=== PATIENT | male | born 1985 | race Caucasian/White ===

== ENCOUNTER → 2021-09-12 12:52 | Outpatient (BNVA) | payer OTHER, MEDICARE, SELFPAY | PROVIDERS: PCP Nurse Practitioner Family; Visit Provider Psychiatry & Neurology Neurology | DX: F95.2 Tourette's disorder (principal); G95.9 Disease of spinal cord, unspecified | CPT/HCPCS: 99212 ==

== ENCOUNTER → 2021-11-02 14:19 | Outpatient (BNVA) | payer OTHER, SELFPAY | PROVIDERS: PCP Nurse Practitioner Family; Visit Provider Psychiatry & Neurology Neurology | DX: F95.2 Tourette's disorder (principal); M50.00 Cervical disc disorder with myelopathy, unspecified cervical region; R26.2 Difficulty in walking, not elsewhere classified; F17.210 Nicotine dependence, cigarettes, uncomplicated | CPT/HCPCS: 99212 ==

== ENCOUNTER → 2022-01-30 13:53 | Outpatient (BNVA) | payer OTHER, SELFPAY | PROVIDERS: PCP Nurse Practitioner Family; Visit Provider Psychiatry & Neurology Neurology | DX: F95.2 Tourette's disorder (principal); G95.9 Disease of spinal cord, unspecified; F32.A Depression, unspecified; F41.9 Anxiety disorder, unspecified | CPT/HCPCS: 99212 ==

== ENCOUNTER → 2022-05-04 14:22 | Outpatient (BNVA) | payer OTHER, SELFPAY | PROVIDERS: PCP Nurse Practitioner Family; Visit Provider Psychiatry & Neurology Neurology | DX: F95.2 Tourette's disorder (principal); G95.9 Disease of spinal cord, unspecified; F41.9 Anxiety disorder, unspecified; F32.A Depression, unspecified; Z79.899 Other long term (current) drug therapy | CPT/HCPCS: 99212 ==

== ENCOUNTER → 2022-09-12 13:23 | Outpatient (BNVA) | payer OTHER, SELFPAY | PROVIDERS: PCP Nurse Practitioner Family; Visit Provider Psychiatry & Neurology Neurology | DX: F95.2 Tourette's disorder (principal); M50.00 Cervical disc disorder with myelopathy, unspecified cervical region; F10.239 Alcohol dependence with withdrawal, unspecified; F32.A Depression, unspecified; F41.9 Anxiety disorder, unspecified | CPT/HCPCS: 99212 ==

== ENCOUNTER → 2022-10-16 14:03 | Outpatient (BNVA) | payer OTHER, SELFPAY | PROVIDERS: PCP Nurse Practitioner Family; Visit Provider Psychiatry & Neurology Neurology | DX: F95.2 Tourette's disorder (principal); G95.9 Disease of spinal cord, unspecified; F32.A Depression, unspecified; F41.9 Anxiety disorder, unspecified; Z79.899 Other long term (current) drug therapy | CPT/HCPCS: 99212 ==

== ENCOUNTER → 2022-11-21 13:30 | Outpatient (BNVA) | payer OTHER, SELFPAY | PROVIDERS: Visit Provider Psychiatry & Neurology Neurology | DX: F95.2 Tourette's disorder (principal); G95.9 Disease of spinal cord, unspecified; F19.10 Other psychoactive substance abuse, uncomplicated; F10.10 Alcohol abuse, uncomplicated | CPT/HCPCS: Q3014 ==

== ENCOUNTER → 2022-12-20 10:27 | Outpatient (BNVA) | payer OTHER, SELFPAY | PROVIDERS: PCP Nurse Practitioner Family; Visit Provider Psychiatry & Neurology Neurology | DX: F95.2 Tourette's disorder (principal); G95.9 Disease of spinal cord, unspecified | CPT/HCPCS: 99212 ==

== ENCOUNTER 2023-07-10 13:38 | Outpatient (AMB) | payer OTHER, SELFPAY ==
--- NOTE | 2023-07-10 13:50 | A.OFFVIS_ITS ---
Intake Vital Signs 07/10/23 13:52 Height 5 ft 8 in Weight 189 lb 6 oz BMI 28.8 BP 132/80 Blood Pressure Location Lt brachial Position Sitting Respiration 16 Pulse 85 Pulse Source Pulse Oximeter Pulse Oximetry (%) 97 Oxygen Delivery Method Room Air Intake Visit Reasons: follow up-confirmed Intake Note: Pt presents to office for follow up of cervical myelopathy. Pt states he's been okay . No new concerns. 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 Allergies No Known Allergies Allergy (Verified 07/10/23 13:56) Medication List - Last Reconciled 07/10/23 by Ele Pretty MD albuterol sulfate 90 mcg/actuation (ProAir HFA) 2 puffs inhalation Q6H PRN atorvastatin 20 mg PO DAILY carbamazepine (Tegretol) 400 mg (2 x 200 mg) PO DAILY celecoxib (Celebrex) 200 mg PO DAILY citalopram 20 mg PO DAILY clonazepam 1 tab at 3am , 1/2 tab 9am and 1 tab at 3pm and 1/2 tab at 9pm 30 days clonidine HCl 0.2 mg PO DAILY 30 days haloperidol 1 mg PO BID lisinopril 20 mg PO DAILY tizanidine 2 mg PO BEDTIME PRN trazodone 50 mg PO BEDTIME vitamin B complex 0 caps PO DAILY PRN HPI HPI Comments History of Present Illness Details 37y/o male with Tourette's , cervical myelopathy , residual gait difficulty and leg weakness comes for follow up.He stopped drinking since November 13. He stopped following up with [facility] and stopped naltrexone. He is on clonazepam to 1/2-1-1/2 -1 mg He decreased his haldol 1mg bid and he feels his TICS are stable Previous history- He is running out of his clonazepam 1mg qid and wants a refill He called 1 week ago reporting increased anxiety irritability, alcohol use,he said that if he did not get help today there was no tomorrow, he had smoked CRACK etc. CRISIS was called and he was taken to [facility] at [place] But he signed himself off in 3 days He is at home now off alcohol for 11 days He missed his appointment with psychologist last week. Today he was very irritable and upset that he is running out of his clonazepam prescription. He is on a good dose to control his TICS but due to his substance abuse i am concerned about interaction and respiratory depression I spoke to his father Robert Mckeon - who says that his TICS worsen everytime he decreased clonazepam . He also has trouble finding a psychiatrist . [facility] Medical History Alcohol abuse Substance abuse Cervical disc herniation Surgical History History of incision and drainage Previous back surgery Social History Alcohol intake: former Patient Tobacco Use Status: Current everyday Tobacco user Tobacco use type: Cigarette Cigarettes Per Day: 11 Substance Use Type: Marijuana Physical Exam Vital Signs: Last Vital Signs Pulse 85 07/10/23 13:52 Resp 16 07/10/23 13:52 BP 132/80 07/10/23 13:52 Pulse Ox 97 07/10/23 13:52 Oxygen Delivery Method Room Air 07/10/23 13:52 BMI result Body Mass Index 28.8 Const General: cooperative Nutritional Appearance: average body habitus Orientation/consciousness: patient oriented x3 HEENT Head: Yes normal to inspection and Yes normocephalic Face and sinus: Yes other (mild intermittent TICS - blinking) Eyes Pupils: Equal, round and reactive pupils present Neuro General: patient oriented x3 Cranial nerves: Yes Equal, round and reactive pupils present and Yes Normal facial strength present Gait exam (Neuro): Ataxic gait present and Other gait observations present (spastic LE) Motor exam (neuro): Pronator motor function not present, no tremor noted and Other motor observations present (mild weakness of lower extremities , increased tone in lower extremity) Psych Speech and movement: Pressured speech present Thought process: Flight of ideas present Assessment & Plan Assessment & Plan (1) Tourette disease: Code(s): F95.2 - Tourette's disorder (2) Cervical myelopathy: Code(s): G95.9 - Disease of spinal cord, unspecified Plan Clonidine 0.2mg qhs haldol 1mg bid clonazepam 1mg 3am- 1/2 tab 9am- 1tab 3pm and 1 tab 9pm - necessary to control his TICS citalopram 20mg qd tizanidine 2mg qhs tegretol 400mg qhs continue exercise Discussed fall prevention discussed about risk of interaction with TOWING PILOT depressants with alcohol . Medications: Changed From haloperidol 1 mg PO TID 90 tabs 3RF To haloperidol 1 mg PO BID 60 tabs 3RF Coding Level of Care Code Est Pt Level 4 (18493) Diagnoses Tourette disease F95.2 Cervical myelopathy G95.9
[2023-07-10 13:52] VITALS: BP 132/80; PULSE 85; RESP 16; O2SAT 97; BMI 28.8
== END 2023-07-10 14:24 | disposition home or self-care (01) ==
PROVIDERS: Visit Provider Psychiatry & Neurology Neurology
DX: F95.2 Tourette's disorder (principal); G95.9 Disease of spinal cord, unspecified
CPT/HCPCS: 99214

== ENCOUNTER → 2023-07-10 13:38 | Outpatient (BNVA) | payer OTHER, SELFPAY | PROVIDERS: Visit Provider Psychiatry & Neurology Neurology | DX: F95.2 Tourette's disorder (principal); G95.9 Disease of spinal cord, unspecified | CPT/HCPCS: 99212 ==

== ENCOUNTER 2024-01-09 12:57 | Outpatient (AMB) | payer OTHER, SELFPAY ==
--- NOTE | 2024-01-09 13:07 | A.OFFVIS_ITS ---
Vital Signs 01/09/24 13:08 Height 5 ft 8 in Weight 172 lb 6 oz BMI 26.2 BP 132/76 Blood Pressure Location Rt brachial Position Sitting Respiration 17 Pulse 69 Pulse Source Pulse Oximeter Pulse Oximetry (%) 97 Oxygen Delivery Method Room Air Intake Visit Reasons: 6 mnts f/u for tourette-lvm Intake Note: Pt presents to the office for a 6 month follow up for Cervical myelopathy. Directional Survey Drafter Required: No Allergies No Known Allergies Allergy (Verified 01/09/24 13:08) Medication List - Last Reconciled 01/09/24 by Ele Pretty MD albuterol sulfate 90 mcg/actuation (ProAir HFA) 2 puffs inhalation Q6H PRN atorvastatin 20 mg PO DAILY carbamazepine (Tegretol) 400 mg (2 x 200 mg) PO DAILY celecoxib (Celebrex) 200 mg PO DAILY citalopram 20 mg PO DAILY clonazepam 2 tabs qm 1 tab qnoon 2 tab qpm and 1 tab qhs orally bedtime; administer 30 minutes before bedtime clonidine HCl 0.2 mg PO DAILY 30 days haloperidol 1 mg PO BID lisinopril 20 mg PO DAILY tizanidine 2 mg PO BEDTIME PRN trazodone 50 mg PO BEDTIME vitamin B complex 0 caps PO DAILY PRN HPI Comments Details: 38y/o male with Tourette's , cervical myelopathy , residual gait difficulty and leg weakness comes for follow up.He stopped drinking since November 13. He stopped following up with [facility] and stopped naltrexone. He is on clonazepam to 1/2-1-1/2 -1 mg He decreased his haldol 1mg bid and he feels his TICS are stable Previous history- He is running out of his clonazepam 1mg qid and wants a refill He called 1 week ago reporting increased anxiety irritability, alcohol use,he said that if he did not get help today there was no tomorrow, he had smoked CRACK etc. CRISIS was called and he was taken to [facility] detox at [place] But he signed himself off in 3 days He is at home now off alcohol for 11 days He missed his appointment with psychologist last week. Today he was very irritable and upset that he is running out of his clonazepam prescription. He is on a good dose to control his TICS but due to his substance abuse i am concerned about interaction and respiratory depression I spoke to his father Robert Mckeon - who says that his TICS worsen everytime he decreased clonazepam . He also has trouble finding a psychiatrist . [facility] Medical History Alcohol abuse Substance abuse Cervical disc herniation Surgical History History of incision and drainage Previous back surgery Social History Alcohol intake: former Patient Tobacco Use Status: Current everyday Tobacco user Tobacco use type: Cigarette Cigarettes Per Day: 11 Substance Use Type: Marijuana Physical Exam Vital Signs: Last Vital Signs Pulse 69 01/09/24 13:08 Resp 17 01/09/24 13:08 BP 132/76 01/09/24 13:08 Pulse Ox 97 01/09/24 13:08 Oxygen Delivery Method Room Air 01/09/24 13:08 BMI result Body Mass Index 26.2 Const General: cooperative Nutritional Appearance: average body habitus Orientation/consciousness: patient oriented x3 HEENT Head: Yes normal to inspection and Yes normocephalic Face and sinus: Yes other (mild intermittent TICS - blinking) Eyes Pupils: Equal, round and reactive pupils present Neuro General: patient oriented x3 Cranial nerves: Yes Equal, round and reactive pupils present and Yes Normal facial strength present Gait exam (Neuro): Ataxic gait present and Other gait observations present (spastic LE) Motor exam (neuro): Pronator motor function not present, no tremor noted and Other motor observations present (mild weakness of lower extremities , increased tone in lower extremity) Psych Speech and movement: Pressured speech present Thought process: Flight of ideas present Assessment & Plan Assessment & Plan (1) Tourette disease: Code(s): F95.2 - Tourette's disorder Category: Medical (2) Cervical myelopathy: Code(s): G95.9 - Disease of spinal cord, unspecified Category: Medical Plan Clonidine 0.2mg qhs haldol 1mg bid clonazepam 1mg 3am- 1/2 tab 9am- 1tab 3pm and 1 tab 9pm - necessary to control his TICS citalopram 20mg qd tizanidine 2mg qhs tegretol 400mg qhs continue exercise Discussed fall prevention discussed about risk of interaction with AIRCRAFT LANDING GEAR INSPECTOR depressants with alcohol . Coding Level of Care Code Est Pt Level 4 (96175) Diagnoses Tourette disease F95.2 Cervical myelopathy G95.9
[2024-01-09 13:08] VITALS: BP 132/76; PULSE 69; RESP 17; O2SAT 97; BMI 26.2
== END 2024-01-09 13:33 | disposition home or self-care (01) ==
PROVIDERS: PCP Nurse Practitioner Family; Visit Provider Psychiatry & Neurology Neurology
DX: F95.2 Tourette's disorder (principal); G95.9 Disease of spinal cord, unspecified
CPT/HCPCS: 99214

== ENCOUNTER → 2024-01-09 12:57 | Outpatient (BNVA) | payer OTHER, SELFPAY | PROVIDERS: PCP Nurse Practitioner Family; Visit Provider Psychiatry & Neurology Neurology | DX: F95.2 Tourette's disorder (principal); G95.9 Disease of spinal cord, unspecified; R26.9 Unspecified abnormalities of gait and mobility; R53.1 Weakness | CPT/HCPCS: 99212 ==

== ENCOUNTER 2024-07-17 15:10 | Outpatient (AMB) | payer OTHER, SELFPAY ==
--- NOTE | 2024-07-17 15:13 | MHC.OFFVIS ---
Vital Signs 07/17/24 15:16 Height 5 ft 8 in Weight 168 lb 8 oz BMI 25.6 BP 104/80 Blood Pressure Location Lt brachial Position Sitting Pulse 74 Pulse Source Pulse Oximeter Pulse Oximetry (%) 98 Oxygen Delivery Method Room Air Intake Visit Reasons: 6 mnts f/u for tourette Intake Note: Patient presents for a 6 mo fu- Cervical Myelopathy. Patient reports having too much energy. 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 Accompanied by: Mother Allergies No Known Allergies Allergy (Verified 07/17/24 15:17) Medication List - Last Reconciled 07/17/24 by Ele Pretty MD albuterol sulfate 90 mcg/actuation (ProAir HFA) 2 puffs inhalation Q6H PRN atorvastatin 20 mg PO DAILY carbamazepine (Tegretol) 200 mg PO BID celecoxib (Celebrex) 200 mg PO DAILY citalopram 20 mg PO DAILY clonazepam 1 mg PO TID clonidine HCl 0.2 mg PO .qhs 30 days clonidine HCl 0.1 mg PO QAM haloperidol 1 mg PO BID lisinopril 20 mg PO DAILY tizanidine 2 mg PO BEDTIME PRN trazodone 50 mg PO BEDTIME vitamin B complex 0 caps PO DAILY PRN HPI Comments Details: 38y/o male with Tourette's , cervical myelopathy , residual gait difficulty and leg weakness comes for follow up.He stopped drinking since November 13. He stopped following up with [facility] and stopped naltrexone. He has been off alcohol for 11months , decreased smoking - 3 packs in 3 1/2 months and lost 30 lbs in past 11 months. He has a therapist - tele and is waiting to see a psychiatrist. He is on clonazepam to 1/2-1-1 -1/2- mg He decreased his haldol 1mg bid and he feels his TICS are stable He takes clonidine 0.2mg qam .He reported behavioral issues so i increased tegretol to 200mg qama nd 400mg qhs He did not do well with tegretol - made him very tired so decreased to 400mg qhs Previous history- He is running out of his clonazepam 1mg qid and wants a refill He called 1 week ago reporting increased anxiety irritability, alcohol use,he said that if he did not get help today there was no tomorrow, he had smoked CRACK etc. CRISIS was called and he was taken to [facility] at [place] But he signed himself off in 3 days He is at home now off alcohol for 11 days He missed his appointment with psychologist last week. Today he was very irritable and upset that he is running out of his clonazepam prescription. He is on a good dose to control his TICS but due to his substance abuse i am concerned about interaction and respiratory depression I spoke to his father Robert Mckeon - who says that his TICS worsen everytime he decreased clonazepam . He also has trouble finding a psychiatrist . [facility] Medical History Alcohol abuse Substance abuse Cervical disc herniation Surgical History History of incision and drainage Previous back surgery Social History Alcohol intake: former Patient Tobacco Use Status: Current everyday Tobacco user Tobacco use type: Cigarette Cigarettes Per Day: 11 Substance Use Type: Marijuana Physical Exam Vital Signs: Last Vital Signs Pulse 74 07/17/24 15:16 BP 104/80 07/17/24 15:16 Pulse Ox 98 07/17/24 15:16 Oxygen Delivery Method Room Air 07/17/24 15:16 BMI result Body Mass Index 25.6 Const General: cooperative Nutritional Appearance: average body habitus Orientation/consciousness: patient oriented x3 HEENT Head: Yes normal to inspection and Yes normocephalic Face and sinus: Yes other (mild intermittent TICS - blinking) Eyes Pupils: Equal, round and reactive pupils present Neuro General: patient oriented x3 Cranial nerves: Yes Equal, round and reactive pupils present and Yes Normal facial strength present Gait exam (Neuro): Ataxic gait present and Other gait observations present (spastic LE) Motor exam (neuro): Pronator motor function not present, no tremor noted and Other motor observations present (mild weakness of lower extremities , increased tone in lower extremity) Psych Speech and movement: Pressured speech present Thought process: Flight of ideas present Assessment & Plan Assessment & Plan (1) Tourette disease: Code(s): F95.2 - Tourette's disorder Category: Medical (2) Cervical myelopathy: Code(s): G95.9 - Disease of spinal cord, unspecified Category: Medical Plan Increase Clonidine 0.2mg qhs and clonidine 0.1mg qam haldol 1mg bid clonazepam 1mg 3am- 1/2 tab 9am- 1tab 3pm and 1 tab 9pm - necessary to control his TICS citalopram 20mg qd tizanidine 2mg qhs tegretol 400mg qhs continue exercise Discussed fall prevention discussed about risk of interaction with PIGMENT WEIGHER depressants with alcohol . Medications: New clonidine HCl 0.1 mg PO QAM 30 tabs 6RF Changed From clonidine HCl 0.2 mg PO DAILY 30 days 30 tabs 6RF To clonidine HCl 0.2 mg PO .qhs 30 days 30 tabs 6RF From carbamazepine (Tegretol) 2 tabs qam and 1 tab qhs 200 mg PO BID 270 tabs 3RF To carbamazepine (Tegretol) 200 mg PO BID 180 tabs 3RF Coding Level of Care Code Est Pt Level 4 (55641) Complex EM visit Add On G2211 Diagnoses Tourette disease F95.2 Cervical myelopathy G95.9
[2024-07-17 15:16] VITALS: BP 104/80; PULSE 74; O2SAT 98; BMI 25.6
== END 2024-07-17 15:36 | disposition home or self-care (01) ==
PROVIDERS: PCP Nurse Practitioner Family; Visit Provider Psychiatry & Neurology Neurology
DX: F95.2 Tourette's disorder (principal); G95.9 Disease of spinal cord, unspecified
CPT/HCPCS: 99214; G2211

== ENCOUNTER → 2024-07-17 15:10 | Outpatient (BNVA) | payer OTHER, SELFPAY | PROVIDERS: PCP Nurse Practitioner Family; Visit Provider Psychiatry & Neurology Neurology | DX: F95.2 Tourette's disorder (principal); G95.9 Disease of spinal cord, unspecified | CPT/HCPCS: 99212 ==

== ENCOUNTER 2025-02-16 15:11 | Outpatient (AMB) | payer OTHER, SELFPAY ==
[2025-02-16 15:23] VITALS: BP 130/82; BMI 28.4
--- NOTE | 2025-02-16 15:23 | MHC.OFFVIS ---
Vital Signs 02/16/25 15:23 Height 5 ft 8 in Weight 187 lb BMI 28.4 BP 130/82 Blood Pressure Location Rt brachial Position Sitting Intake Visit Reasons: 2m follow up Intake Note: patient presents for follow up med trial and adjustment Allergies No Known Allergies Allergy (Verified 02/16/25 15:27) Medication List - Last Reconciled 02/16/25 by Ele Pretty MD albuterol sulfate 90 mcg/actuation (ProAir HFA) 2 puffs inhalation Q6H PRN atorvastatin 20 mg PO DAILY carbamazepine (Tegretol) 200 mg PO BID celecoxib (Celebrex) 200 mg PO DAILY citalopram 20 mg PO DAILY clonazepam 0.5 mg PO BID clonidine HCl 0.2 mg PO .qhs 30 days clonidine HCl 0.1 mg PO QAM cyclobenzaprine 10 mg PO BID PRN gabapentin 300 mg PO DAILY haloperidol 1 mg PO BID lisinopril 20 mg PO DAILY quetiapine ER (Seroquel XR) 50 mg PO BEDTIME vitamin B complex 0 caps PO DAILY PRN HPI Comments Details: 39y/o male with Tourette's , cervical myelopathy , residual gait difficulty and leg weakness comes for follow up.He stopped drinking since November 14 2023. He stopped following up with [facility] and stopped naltrexone. He has been off alcohol for 11months , decreased smoking - 3 packs in 3 1/2 months and lost 30 lbs in past 11 months. His TICS have increased He has been diagnosed with Manic bipolar disorder. He is on clonazepam to 1/2mg bid He is on quetiapine 200mg bid and 50mg bid He is on haldol 1mg bid and he feels his TICS are stable He takes clonidine 0.2mg qhs and 0.1mg qam.He reports tegretol to 200mg qam and qhs Previous history- He is running out of his clonazepam 1mg qid and wants a refill He called 1 week ago reporting increased anxiety irritability, alcohol use,he said that if he did not get help today there was no tomorrow, he had smoked CRACK etc. CRISIS was called and he was taken to [facility] at [place] But he signed himself off in 3 days He is at home now off alcohol for 11 days He missed his appointment with psychologist last week. Today he was very irritable and upset that he is running out of his clonazepam prescription. He is on a good dose to control his TICS but due to his substance abuse i am concerned about interaction and respiratory depression I spoke to his father Robert Mckeon - who says that his TICS worsen everytime he decreased clonazepam . He also has trouble finding a psychiatrist . [facility] Medical History Alcohol abuse Substance abuse Cervical disc herniation Surgical History History of incision and drainage Previous back surgery Social History Alcohol intake: former Patient Tobacco Use Status: Current everyday Tobacco user Tobacco use type: Cigarette Cigarettes Per Day: 11 Substance Use Type: Marijuana Physical Exam Vital Signs: Last Vital Signs BP 130/82 02/16/25 15:23 BMI result Body Mass Index 28.4 Const General: cooperative Nutritional Appearance: average body habitus Orientation/consciousness: patient oriented x3 HEENT Head: Yes normal to inspection and Yes normocephalic Face and sinus: Yes other (mild intermittent TICS - blinking) Eyes Pupils: Equal, round and reactive pupils present Neuro General: patient oriented x3 Cranial nerves: Yes Equal, round and reactive pupils present and Yes Normal facial strength present Gait exam (Neuro): Ataxic gait present and Other gait observations present (spastic LE) Motor exam (neuro): Pronator motor function not present, no tremor noted and Other motor observations present (mild weakness of lower extremities , increased tone in lower extremity) Psych Speech and movement: Pressured speech present Thought process: Flight of ideas present Assessment & Plan Assessment & Plan (1) Tourette disease: Code(s): F95.2 - Tourette's disorder Category: Medical (2) Cervical myelopathy: Code(s): G95.9 - Disease of spinal cord, unspecified Category: Medical Plan Clonidine 0.1mg qam 0.2mg qhs haldol 1mg bid- will consider increase after talking Lizzy Ayala clonazepam 0.5 mg bid necessary to control his TICS- PATIENT WANTS TO INCREASE BUT HIS H/O alcoholism - discuss about changing dose. citalopram 20mg qd tizanidine 2mg qhs tegretol 200 mg bid continue exercise Discussed fall prevention discussed about risk of interaction with STILL OPERATOR BATCH OR CONTINUOUS depressants with alcohol . Medications: New quetiapine 200 mg PO BID Coding Level of Care Code Est Pt Level 4 (87391) Complex EM visit Add On G2211 Diagnoses Tourette disease F95.2 Cervical myelopathy G95.9
== END 2025-02-16 15:54 | disposition home or self-care (01) ==
LOC: HO.HSMS 15:12
PROVIDERS: PCP Nurse Practitioner Family; Visit Provider Psychiatry & Neurology Neurology
DX: F95.2 Tourette's disorder (principal); G95.9 Disease of spinal cord, unspecified
CPT/HCPCS: 99214; G2211

== ENCOUNTER → 2025-02-16 15:11 | Outpatient (BNVA) | payer OTHER, SELFPAY | PROVIDERS: PCP Nurse Practitioner Family; Visit Provider Psychiatry & Neurology Neurology | DX: F95.2 Tourette's disorder (principal); G95.9 Disease of spinal cord, unspecified | CPT/HCPCS: 99212 ==

== ENCOUNTER → 2025-02-23 07:57 | Outpatient (REF) | payer OTHER, SELFPAY ==
--- NOTE | 2025-02-23 08:13 | ECG_ITS ---
Test Reason : [id number] Blood Pressure : */* mmHG Vent. Rate : 93 BPM Atrial Rate : 93 BPM P-R Int : 152 ms QRS Dur : 90 ms QT Int : 346 ms P-R-T Axes : 58 64 47 degrees QTcB Int : 430 ms Normal sinus rhythm Normal ECG No previous ECGs available Referred By: Lizzy Mast Electronically Signed By: Abel Edmondson
== END ==
LOC: HO.CARD 07:57
PROVIDERS: PCP Nurse Practitioner Family; Visit Provider Registered Nurse
DX: Z79.899 Other long term (current) drug therapy (principal)
CPT/HCPCS: 93005

== ENCOUNTER → 2025-02-23 08:13 | Outpatient (BNV) | payer OTHER, SELFPAY | PROVIDERS: PCP Nurse Practitioner Family; Visit Provider Internal Medicine Cardiovascular Disease | DX: Z79.899 Other long term (current) drug therapy (principal) | CPT/HCPCS: 93010 ==